=== PATIENT | female | born 1990 | race Caucasian/White ===

== ENCOUNTER 2016-12-12 12:10 | Emergency (ER) | payer OTHER ==
[~2016-12-12] VITALS: Ht 167.6 cm; Wt 90.7 kg
[2016-12-12 12:11] VITALS: BP 134/84
[2016-12-12] MEDS ORDERED: CLEOCIN HCL300 MG PO (12:26)
[2016-12-12] MEDS ORDERED: IBUPROFEN 800800 MG PO (12:26)
[2016-12-12] MEDS ORDERED: XANAX 0.25 MG0.25 MG PO (12:40)
[2016-12-12] MEDS ORDERED: SERTRALINE HCL50 MG PO (12:40)
== END 2016-12-12 12:27 | disposition home or self-care (01) ==
LOC: ER 12:10
DX: K04.7 Periapical abscess without sinus (principal); F10.99 Alcohol use, unspecified with unspecified alcohol-induced disorder; Z98.890 Other specified postprocedural states